=== PATIENT | male | born 1980 | race Caucasian/White ===

== ENCOUNTER 2016-11-29 21:03 | Emergency (ER) | payer OTHER ==
[2016-11-29] MEDS ORDERED: hydrOXYzine HCl 50 MG/ML SDV IM ONE (21:27)
[2016-11-29] MEDS ORDERED: Ketorolac 60 MG/2 ML SDV IM ONE (21:27)
--- NOTE | 2016-11-29 21:34 | EDM.PDOC ---
ED HPI GENERAL MEDICAL PROBLEM - General Chief Complaint: Headache Stated Complaint: MIGRAINE Time Seen by Provider: 11/29/16 21:15 Source of Information: Reports: Patient, Old Records History Limitations: Reports: No Limitations - History of Present Illness INITIAL COMMENTS - FREE TEXT/NARRATIVE: Neeraj awoke with a throbbing headache this am that has persisted all day. There is some photophobia and mild nausea. He has taken NSAIDs for pain, and attempted to go to work this pm, but left at advice of supervisor pre wave to seek treatment. He has been treated for a vascular headache in the past. head Pain Score (Numeric/FACES): 8 - Related Data Allergies Allergy/AdvReac Type Severity Reaction Status Date / Time No Known Allergies Allergy Verified 11/29/16 21:15 Home Meds: Home Meds DULoxetine [Cymbalta] 90 tab PO DAILY 01/05/16 [History] Ibuprofen 800 mg PO TID #90 tablet 01/05/16 [Rx] Omeprazole 40 mg PO DAILY 01/05/16 [History] tiZANidine [Zanaflex] 4 tab PO BEDTIME 01/05/16 [History] Past Medical History HEENT History: Reports: Hard of Hearing, Other (See Below) Other HEENT History: impaired hearing, ear drums burst Gastrointestinal History: Reports: GERD Musculoskeletal History: Reports: Back Pain, Chronic Neurological History: Reports: Migraines Psychiatric History: Reports: Depression - Infectious Disease History Infectious Disease History: Reports: Chicken Pox - Past Surgical History Musculoskeletal Surgical History: Reports: Other (See Below) Social & Family History - Family History Family Medical History: Noncontributory Cardiac: Reports: Other (See Below) Other Cardiac Family History: HEART ATTACK Respiratory: Reports: COPD GI: Reports: GERD Neurological: Reports: CVA Oncologic: Reports: Other (See Below) Other Oncologic Family History: GASTRIC CA - Tobacco Use Smoking Status *Q: Current Every Day Smoker Years of Tobacco use: 15 Packs/Tins Daily: 1 Used Tobacco, but Quit: No Second Hand Smoke Exposure: Yes - Caffeine Use Caffeine Use: Reports: Soda - Alcohol Use Days Per Week of Alcohol Use: 0 Number of Drinks Per Day: 1 Total Drinks Per Week: 0 - Recreational Drug Use Recreational Drug Use: No - Living Situation & Occupation Living situation: Reports: Occupation: Employed ED ROS GENERAL - Review of Systems Review Of Systems: ROS reveals no pertinent complaints other than HPI. - Physical Exam Exam: See Below Exam Limited By: No Limitations General Appearance: Alert, WD/WN, Moderate Distress Eye Exam: Bilateral Eye: EOMI, Normal Inspection, PERRL Ears: Normal External Exam, Normal TMs Nose: Normal Inspection Throat/Mouth: Normal Inspection, Normal Lips, Normal Gums, Normal Oropharynx, Normal Voice Head Exam: Normocephalic, Scalp Tenderness ([id number]) Neck: Normal Inspection, Supple, Non-Tender, Full Range of Motion Respiratory/Chest: Lungs Clear, Normal Breath Sounds Cardiovascular: Regular Rate, Rhythm, No Murmur GI/Abdominal: Normal Bowel Sounds, Soft, No Organomegaly, No Distention, No Mass Neuro Exam (Abbreviated): Alert, Oriented, CN II-XII Intact, Normal Cognition, Normal Gait, No Motor/Sensory Deficits Back Exam: Normal Inspection Extremities: Normal Inspection Psychiatric: Normal Affect, Normal Mood Skin Exam: Warm, Dry Course - Vital Signs Text/Narrative:: Following assession at the [facility] ED, I administered Toradol 60 mg IM and Vistaril 75 mg IM. Patient tolerated well. Last Recorded V/S: Last Vital Signs Temp 36.8 C 11/29/16 21:03 Pulse 82 11/29/16 21:03 Resp 18 11/29/16 21:03 BP 148/83 H 11/29/16 21:03 Pulse Ox 82 L 11/29/16 21:03 - Orders/Labs/Meds Orders: Active Orders 24 hr Category Date Time Status Ketorolac [Toradol] Med 11/29/16 21:27 Once 60 mg IM ONETIME ONE hydrOXYzine HCl [Vistaril] Med 11/29/16 21:27 Once 75 mg IM ONETIME ONE Departure - Departure Time of Disposition: 21:32 Disposition: Home, Self-Care 01 Condition: Fair Clinical Impression: Migraine - Discharge Information Referrals: Carlos Manuel Becerra MD [Primary Care Provider] - - Problem List & Annotations (1) Migraine SNOMED Code(s): 68498763 Code(s): G43.909 - MIGRAINE, UNSP, NOT INTRACTABLE, WITHOUT STATUS MIGRAINOSUS Status: Acute Current Visit: Yes Annotation/Comment:: Rest, NSAIDs, and return home tonight. Follow up with PCP if needed. - Problem List Review Problem List Initiated/Reviewed/Updated: Yes - My Orders Last 24 Hours: My Active Orders 11/29/16 21:27 Ketorolac [Toradol] 60 mg IM ONETIME ONE hydrOXYzine HCl [Vistaril] 75 mg IM ONETIME ONE - Assessment/Plan Last 24 Hours: My Active Orders 11/29/16 21:27 Ketorolac [Toradol] 60 mg IM ONETIME ONE hydrOXYzine HCl [Vistaril] 75 mg IM ONETIME ONE Plan: Follow up with PCP if needed.
[2016-11-29 21:50] VITALS: BP 146/74
== END 2016-11-29 21:50 | disposition home or self-care (01) ==
LOC: FB.ED 21:03
DX: G43.909 Migraine, unspecified, not intractable, without status migrainosus (principal); K21.9 Gastro-esophageal reflux disease without esophagitis; F32.9 Major depressive disorder, single episode, unspecified; F17.210 Nicotine dependence, cigarettes, uncomplicated; Z79.899 Other long term (current) drug therapy
CPT/HCPCS: 96372; 99283; J1885; J3410

== ENCOUNTER 2016-12-04 02:35 | Emergency (ER) | payer OTHER ==
[2016-12-04] MEDS ORDERED: Ketorolac 60 MG/2 ML SDV IM ONE (02:51)
[2016-12-04 04:42] VITALS: BP 136/78
== END 2016-12-04 03:05 | disposition home or self-care (01) ==
LOC: FB.ED 02:35
DX: S06.0X0A Concussion without loss of consciousness, initial encounter (principal); S01.03XA Puncture wound without foreign body of scalp, initial encounter; W22.8XXA Striking against or struck by other objects, initial encounter; Y92.69 Other specified industrial and construction area as the place of occurrence of the external cause; Y99.0 Civilian activity done for income or pay
CPT/HCPCS: 96372; 99283; J1885

== ENCOUNTER 2016-12-28 01:16 | Emergency (ER) | payer SELFPAY ==
[2016-12-28 01:52] VITALS: BP 120/77
[2016-12-28] MEDS ORDERED: Ketorolac 60 MG/2 ML SDV IM ONE (01:57)
[2016-12-28] MEDS ORDERED: Ketorolac 60 MG/2 ML SDV ONE (01:59)
--- NOTE | 2016-12-28 08:43 | ER ---
DATE SEEN: 12/28/2016 CHIEF COMPLAINT: Ear pain. HISTORY OF PRESENT ILLNESS: This is a 36-year-old male complaining of right ear pain that started tonight while at work. Pain radiates down the throat. It feels like drainage and a previous ear infection. However, he has no fever or chills. No headaches. SOCIAL HISTORY: Noncontributory. He works at [employer]. MEDICATIONS: Please see electronic record. ALLERGIES: Please see electronic record. PHYSICAL EXAMINATION: GENERAL: He is not in distress. VITAL SIGNS: His blood pressure is normal. He is afebrile. EARS: External ears are normal. Canals are patent. TMs are intact. Pearly morfin. ORAL: Oropharynx is clear. CHEST: Clear. IMPRESSION: 1. Cephalgia. 2. Postnasal drip. PLAN: 60 mg of Toradol for pain. No need for antibiotics. Follow up in the office if his symptoms get worse. TIME SEEN: 0145 hours. /[id number] RUBY/CAROLINE
== END 2016-12-28 02:07 | disposition home or self-care (01) ==
LOC: FB.ED 01:16
DX: R51 Headache (principal); R09.82 Postnasal drip
CPT/HCPCS: 96372; 99282; J1885; 99283